=== PATIENT | male | born 1965 | race African-American/Black ===

== ENCOUNTER 2021-03-06 07:59 | Emergency (ER) | payer MEDICAID ==
[~2021-03-06] VITALS: Ht 177.8 cm; Wt 99.0 kg
[2021-03-06 09:23] LABS: BASOPHILS % 0.9 % (0.0-2.0); EOSINOPHILS % 4.8 % (0.0-5.0); HEMATOCRIT. 43.4 % (42.0-52.0); HEMOGLOBIN. 15.3 g/dL (14.0-18.0); LYMPHOCYTES % 19.3 % (20.0-50.0); MEAN CORPUSCULAR HEMOGLOBIN 32.3 pg (28.0-32.0); MEAN CORPUSCULAR VOLUME 91.6 fL (80.0-94.0); MEAN PLATELET VOLUME 8.3 fl (7.4-10.4); MONOCYTES % 5.6 % (2.0-8.0); NEUTROPHILS % 69.4 % (40.0-76.0); PLATELET 132 x1000/uL (130-400); RED BLOOD CELL COUNT 4.74 mill/uL (4.7-6.1); RED CELL DISTRIBUTION WIDTH 14.3 % (11.6-14.6)
[2021-03-06 09:30] LABS: CHLORIDE 105 mEq/L (98-107)
[2021-03-06 12:54] VITALS: BP 124/88
== END 2021-03-06 12:54 | disposition home or self-care (01) ==
LOC: ER 07:59
DX: R07.9 Chest pain, unspecified (principal); E11.65 Type 2 diabetes mellitus with hyperglycemia; I10 Essential (primary) hypertension; B20 Human immunodeficiency virus [HIV] disease; F19.10 Other psychoactive substance abuse, uncomplicated; Z20.822 Contact with and (suspected) exposure to COVID-19
CPT/HCPCS: 36415; 71045; 80053; 84484; 85025; 87426; 93005; 99285

== ENCOUNTER 2022-05-11 00:02 | Emergency (ER) | payer MEDICAID, OTHER ==
[~2022-05-11] VITALS: Ht 172.7 cm; Wt 97.0 kg
[2022-05-11 00:45] VITALS: BP 128/88
[2022-05-11] MEDS ORDERED: PENICILLIN G BENZATHINE 2,400,000 UNITS/4ML SYR IM ONE (04:00)
[2022-05-13 04:07] LABS: NEISSERIA GONORRHOEAE NAA Negative (Negative)
== END 2022-05-11 04:00 | disposition home or self-care (01) ==
LOC: ER 00:02
DX: Z20.2 Contact with and (suspected) exposure to infections with a predominantly sexual mode of transmission (principal); R11.2 Nausea with vomiting, unspecified; E78.00 Pure hypercholesterolemia, unspecified; I12.9 Hypertensive chronic kidney disease with stage 1 through stage 4 chronic kidney disease, or unspecified chronic kidney disease; E11.22 Type 2 diabetes mellitus with diabetic chronic kidney disease; N18.9 Chronic kidney disease, unspecified; B20 Human immunodeficiency virus [HIV] disease; Z20.822 Contact with and (suspected) exposure to COVID-19
CPT/HCPCS: 87426; 87491; 87591; 99283; J0561